=== PATIENT | female | born 1955 | race Caucasian/White ===

== ENCOUNTER 2018-09-18 03:30 | Emergency (ER) | payer OTHER ==
[~2018-09-18] VITALS: Ht 157.5 cm; Wt 58.1 kg
[~2018-09-18 03:30] MED LIST: AVAPRO75 MG; LOVAZA1 G; PLAVIX75 MG
[2018-09-18] MEDS ORDERED: KETO10TA2 PO (12:49)
[2018-09-18] MEDS ORDERED: CIPRO500 MG PO (12:49)
[2018-09-18] MEDS ORDERED: TAMS0.4C PO (12:49)
== END 2018-09-18 13:08 | disposition home or self-care (01) ==
LOC: ER 03:30
DX: R10.84 Generalized abdominal pain (principal)

== ENCOUNTER 2019-01-08 20:07 | Emergency (ER) | payer OTHER ==
[~2019-01-08] VITALS: Ht 157.5 cm; Wt 55.3 kg
[~2019-01-08 20:07] MED LIST changes: +CIPRO500 MG PO; +KETO10TA2 PO; +TAMS0.4C PO
[2019-01-08] MEDS ORDERED: NEURONTIN600 MG (20:49)
== END 2019-01-09 16:38 | disposition home or self-care (01) ==
LOC: ER 20:07
DX: N13.39 Other hydronephrosis (principal); K57.90 Diverticulosis of intestine, part unspecified, without perforation or abscess without bleeding